=== PATIENT | male | born 1965 | race American Indian/Alaskan Native ===

== ENCOUNTER 2018-05-29 20:32 | Emergency (ER) | payer SELFPAY ==
[2018-05-29 20:41] VITALS: RESP 16
--- NOTE | 2018-05-29 20:49 | C.PDOC ---
History Of Present Illness 52 year old male patient brought to the ER by police requesting medical clearance due to arrest. Patient denies HI/SI, chest pain, and SOB. Time Seen by Provider: 05/29/18 20:49 Chief Complaint (Nursing): Medical Clearance History Per: Patient History/Exam Limitations: no limitations Onset/Duration Of Symptoms: Unknown Severity: None Pain Scale Rating Of: 0 Recent travel outside of the [place]: No Additional History Per: Patient Past Medical History Reviewed: Historical Data, Nursing Documentation, Vital Signs Vital Signs: Last Vital Signs Temp 98.7 F 05/29/18 20:35 Pulse 62 05/29/18 20:35 Resp 16 05/29/18 20:35 BP 119/71 05/29/18 20:35 Pulse Ox 100 05/29/18 21:43 - Medical History PMH: Anxiety, HTN Family History: States: No Known Family Hx - Social History Hx Alcohol Use: Yes Hx 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) - Immunization History Hx Tetanus Toxoid Vaccination: No Hx Influenza Vaccination: No Hx Pneumococcal Vaccination: No Review Of Systems Cardiovascular: Negative for: Chest Pain Respiratory: Negative for: Shortness of Breath Musculoskeletal: Negative for: Back Pain Skin: Negative for: Rash Neurological: Negative for: Weakness Psych: Negative for: Suicidal ideation, Other (homicide ideation) Physical Exam - Physical Exam Appears: Non-toxic, No Acute Distress Skin: Warm, Dry Head: Normacephalic Eye(s): bilateral: Normal Inspection Oral Mucosa: Moist Neck: Trachea Midline, Supple Cardiovascular: Rhythm Regular Respiratory: No Rales, No Rhonchi, No Wheezing Gastrointestinal/Abdominal: Soft, No Tenderness, No Distention Back: Normal Inspection Extremity: Normal ROM (x4) Extremity: Bilateral: Atraumatic Pulses: Left Dorsalis Pedis: Normal (2+), Right Dorsalis Pedis: Normal (2+) Neurological/Psych: Oriented x3 Gait: Steady ED Course And Treatment - Laboratory Results Result Diagrams: 05/29/18 20:55 05/29/18 20:55 O2 Sat by Pulse Oximetry: 100 (RA) Pulse Ox Interpretation: Normal Progress Note: Blood work and urine sent. Reevaluation Time: 22:08 Reassessment Condition: Improved Disposition Counseled Patient/Family Regarding: Studies Performed, Diagnosis, Need For Followup - Disposition Referrals: [facility] [Outside] [facility] [Outside] Disposition: RELEASED IN POLICE CUSTODY Disposition Time: 20:49 Condition: FAIR Additional Instructions: Patient is medically cleared for incarceration Forms: [facility] (Mongolian), General Discharge Instructions - Clinical Impression Clinical Impression: Medical assessment - Scribe Statement The provider has reviewed the documentation as recorded by the Scribe De La Rosa Do Provider Attestation: All medical record entries made by the Scribe were at my direction and personally dictated by me. I have reviewed the chart and agree that the record accurately reflects my personal performance of the history, physical exam, medical decision making, and the department course for this patient. I have also personally directed, reviewed, and agree with the discharge instructions and disposition.
[2018-05-29 21:01] LABS: BASO % 0.3 % (0.0-2.0); EOS # 0.1 K/uL (0.0-0.7); EOS % 2.6 % (0.0-4.0); HEMOGLOBIN 10.4 g/dL (12.0-18.0); LYMPH # 1.8 K/uL (1.0-4.3); LYMPH % 34.1 % (20.0-40.0); MEAN CELL VOLUME 88.6 fL (80.0-94.0); MEAN CORPUSCULAR HEMOGLOBIN 28.8 pg (27.0-31.0); MEAN CORPUSCULAR HGB CONC 32.5 g/dL (33.0-37.0); MEAN PLATELET VOLUME 8.6 fL (7.2-11.7); MONO # 0.5 K/uL (0.0-0.8); MONO % 8.7 % (0.0-10.0); NEUT # 2.8 K/uL (1.8-7.0); NEUT % 54.3 % (50.0-75.0); RBC 3.62 Mil/uL (4.40-5.90); RED CELL DISTRIBUTION WIDTH 13.7 % (11.5-14.5); WHITE BLOOD COUNT 5.2 K/uL (4.8-10.8)
[2018-05-29 21:10] LABS: URINE BACTERIA RARE (<OCC); URINE BILIRUBIN NEGATIVE (NEGATIVE); URINE BLOOD NEGATIVE (NEGATIVE); URINE CLARITY Clear (Clear); URINE COLOR Yellow (YELLOW); URINE GLUCOSE (UA) NORMAL (Normal); URINE LEUKOCYTE ESTERASE TRACE Leu/uL (Negative); URINE PROTEIN NEGATIVE (NEGATIVE)
[2018-05-29 21:14] LABS: ALBUMIN 4.1 g/dL (3.5-5.0); BLOOD UREA NITROGEN 13 mg/dL (9-20); CALCIUM 8.9 mg/dl (8.6-10.4); GFR AFRICAN-AMERICAN 55; GFR NON-AFRICAN AMERICAN 46
[2018-05-29 21:15] LABS: ALB/GLOB RATIO 1.5 (1.0-2.1); ALT/SGPT 23 U/L (21-72); AST/SGOT 19 U/L (17-59)
[2018-05-29 21:19] LABS: BARBITURATES, UR NEGATIVE (NEGATIVE); PHENCYCLIDINE, UR NEGATIVE (NEGATIVE)
[2018-05-29 21:35] LABS: BENZODIAZEPINES, UR POSITIVE (NEGATIVE)
[2018-05-29 21:36] LABS: OPIATES, UR POSITIVE (NEGATIVE)
[2018-05-29 22:31] VITALS: BP 115/79; PULSE 107; TEMP 98.1; O2SAT 95
== END 2018-05-29 22:28 ==
LOC: C.ER 20:32
DX: Z04.8 Encounter for examination and observation for other specified reasons (principal)
CPT/HCPCS: 80053; 81001; 85025; 99282; G0480